=== PATIENT | female | born 1970 | race Hispanic/Latino ===

== ENCOUNTER 2018-01-05 13:47 | Emergency (ER) | payer SELFPAY ==
[~2018-01-05] VITALS: Ht 157.5 cm; Wt 63.5 kg
[2018-01-05] MEDS ORDERED: HYDROCODONE/APAP 10MG-325MG TAB PO ONE (14:45)
[2018-01-05] MEDS ORDERED: ORPHENADRINE CITRATE 30 MG/ML VIAL IM ONE (14:45)
--- NOTE | 2018-01-05 16:06 | Diagnostic Imaging Report ---
RIGHT SHOULDER X-RAY - 2 VIEWS HISTORY: \S\neck pain with radiculopathy \[id number] \S\1450 \S\Y COMPARISON: None available. FINDINGS: Bones: No acute displaced fracture. Well corticated calcification/bone fragment adjacent to the right humeral head suggestive of rotator cuff tendinosis. Osseous alignment is within normal limits. Joints: The joint spaces are well-maintained. Soft tissues: The soft tissues appear unremarkable. IMPRESSION: No acute radiographic abnormality. Likely rotator cuff tendinosis. Signed by: Dr. My Avitia M.D. on 01/05/2018 4:03 PM
--- NOTE | 2018-01-05 16:07 | Diagnostic Imaging Report ---
Cervical Spine, 5 views HISTORY: Pain. Clavicular pathology COMPARISON: None. FINDINGS: Limited sensitivity for detection of subtle fractures and ligamentous abnormalities. On the lateral view, the cervical spine is visualized from the skull base to . The alignment is normal. No acute displaced fracture involving the visualized cervical spine. Disc Spaces and Uncovertebral Joints: Mild degenerative changes at C4-C5 and C5-C6. 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 No foraminal narrowing. IMPRESSION: Mild degenerative changes from C4 to C6. Signed by: Dr. My Avitia M.D. on 01/05/2018 4:04 PM
[2018-01-05] MEDS: KETOROLAC TROMETHAMINE 60 MG/2 ML VIAL IM ONE ×2 (17:22→17:25)
== END 2018-01-05 19:45 | disposition home or self-care (01) ==
LOC: ER 13:47
DX: M54.2 Cervicalgia (principal); M54.12 Radiculopathy, cervical region; M25.511 Pain in right shoulder; S16.1XXA Strain of muscle, fascia and tendon at neck level, initial encounter; S46.811A Strain of other muscles, fascia and tendons at shoulder and upper arm level, right arm, initial encounter; E07.9 Disorder of thyroid, unspecified
CPT/HCPCS: 72050; 73030; 99284; J1885; J2360

== ENCOUNTER 2019-08-10 15:36 | Emergency (ER) | payer SELFPAY ==
[~2019-08-10] VITALS: Ht 157.5 cm; Wt 63.5 kg
--- OUTSIDE RECORDS SUMMARY | 2019-08-10 15:39 | XMS REPORT ---
[facility] Address Unknown Phone Unavailable Care Team Providers Care Crowd Controller Name Role Phone Derrick LAZO Unavailable Unavailable Problems This patient has no known problems. Allergies, Adverse Reactions, Alerts This patient has no known allergies or adverse reactions. Medications This patient has no known medications. Results Test Description Test Time Test Comments Text Results Atomic Results Result Comments CERVICAL SPINE 4 OR 5 VIEWS 2018-01-05 16:03:00 [facility] [address] [place] [address] Patient Name: PARMJIT ELLIOTT MR #: [id number] : 1970 Age/Sex: 47/F Req #: [id number] Adm Physician: Ordered by: RICHMOND SHEEHAN APPEALS COORDINATOR Report #: [id number] Location: ER Room/Bed: Procedure: [id number] DX/CERVICAL SPINE 4 OR 5 VIEWS Exam Date: 01/05/18 Exam Time: 1450 REPORT STATUS: Signed Cervical Spine, 5 views HISTORY: Pain. Clavicular pathology COMPARISON: None. FINDINGS: Limited sensitivity for detection of subtle fractures and ligamentous abnormalities. On the lateral view, the cervical spine is visualized from the skull base to . The alignment is normal. No acute displaced fracture involving the visualized cervical spine. Disc Spaces and Uncovertebral Joints: Mild degenerative changes at C4-C5 and C5-C6. 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 No foraminal narrowing. IMPRESSION: Mild degenerative changes from C4 to C6. Signed by: Dr. Trupti Quinteros M.D. on 01/05/2018 4:04 PM Dictated By: TRUPTI QUINTEROS MD 03 Transcribed By: JAYY on 01/05/18 160 COPY TO: RICHMOND SHEEHAN NP SHOULDER RIGHT COMPLETE 2018-01-05 16:02:00 [place] [address] Patient Name: PARMJIT ELLIOTT MR #: [id number] : 1970 Age/Sex: 47/F Req #: [id number] Adm Physician: Ordered by: RICHMOND SHEEHAN NP Report #: [id number] Location: ER Room/Bed: Procedure: [id number] DX/SHOULDER RIGHT COMPLETE Exam Date: 01/05/18 Exam Time: 1450 REPORT STATUS: Signed RIGHT SHOULDER X-RAY - 2 VIEWS HISTORY: COMPARISON: None available. FINDINGS: Bones: No acute displaced fracture. Well corticated calcification/bone fragment adjacent to the right humeral head suggestive of rotator cuff tendinosis. Osseous alignment is within normal limits. Joints: The joint spaces are well- maintained. Soft tissues: The soft tissues appear unremarkable. IMPRESSION: No acute radiographic abnormality. Likely rotator cuff tendinosis. Signed by: Dr. Trupti Quinteros M.D. on 01/05/2018 4:03 PM Dictated By: TRUPTI QUINTEROS MD 160 Transcribed By: JAYY on 01/05/18 [id number] COPY TO: RICHMOND SHEEHAN NP
[2019-08-10] MEDS ORDERED: TETANUS/DIPHTHERIA TOX ADULT 0.5 ML SYR IM ONE (16:00)
[2019-08-10 17:35] VITALS: BP 139/82
--- NOTE | 2019-08-10 18:34 | Diagnostic Imaging Report ---
LEFT HAND X-RAY - 3 VIEWS HISTORY: ^r/o f/b fx post pw ^[id number] ^[id number] COMPARISON: None available. FINDINGS: Bones: No acute displaced fracture. A 3 mm well-corticated calcification/loose body adjacent to the ulnar styloid may reflect prior trauma or tendon calcification. Osseous alignment is within normal limits. Joints: The joint spaces are well-maintained. Soft tissues: The soft tissues appear unremarkable. IMPRESSION: No acute bony abnormality. Small calcification/loose body adjacent to the ulnar styloid appears to be chronic rather than acute. Correlate with region of pain. Signed by: Dr. My Avitia M.D. on 08/10/2019 6:31 PM
== END 2019-08-10 18:37 | disposition home or self-care (01) ==
LOC: ER 15:36
DX: S61.432A Puncture wound without foreign body of left hand, initial encounter (principal); W27.0XXA Contact with workbench tool, initial encounter; Y92.008 Other place in unspecified non-institutional (private) residence as the place of occurrence of the external cause; E03.9 Hypothyroidism, unspecified
CPT/HCPCS: 90471; 90714; 99283

== ENCOUNTER 2020-12-19 07:42 | Emergency (ER) | payer OTHER ==
[~2020-12-19] VITALS: Ht 167.6 cm; Wt 81.6 kg
[2020-12-19 09:26] LABS: BASOPHILS # (AUTO) 0.1 (0.0-0.1); BASOPHILS % 0.5 % (0.0-1.0); EOSINOPHILS # (AUTO) 0.1 (0.0-0.4); EOSINOPHILS % 1.1 % (0.0-6.0); HEMATOCRIT 38.5 % (34.2-44.1); HEMOGLOBIN 12.4 g/dL (12.0-16.0); LYMPHOCYTES # (AUTO) 1.4 (1.0-3.2); LYMPHOCYTES % 14.3 % (18.0-39.1); MEAN CORPUSCULAR HEMOGLOBIN 26.8 pg (28-32); MEAN CORPUSCULAR HGB CONC 32.2 g/dL (31-35); MEAN CORPUSCULAR VOLUME 83.2 fL (81-99); MONOCYTES # (AUTO) 0.7 (0.2-0.8); MONOCYTES % 7.1 % (4.4-11.3); NEUTROPHILS # (AUTO) 7.5 (2.1-6.9); NEUTROPHILS % 76.3 % (38.7-80.0); PLATELET COUNT 225 x10e3/uL (140-360); RED BLOOD COUNT 4.63 x10e6/uL (3.6-5.1); RED CELL DISTRIBUTION WIDTH 15.6 % (11.7-14.4)
[2020-12-19 09:33] LABS: CLARITY,URINE CLEAR (CLEAR); COLOR,URINE YELLOW (YELLOW); KETONES,URINE NEGATIVE (NEGATIVE); LEUKOCYTE ESTERASE ,URINE NEGATIVE (NEGATIVE); NITRITE,URINE NEGATIVE (NEGATIVE); PROTEIN,URINE DIPSTICK NEGATIVE (NEGATIVE); URINE UROBILINOGEN 0.2 mg/dL (0.2 - 1)
[2020-12-19 09:36] LABS: ANION GAP 15.9 mmol/L (8-16); CALCIUM 9.1 mg/dL (8.4-10.2); CREATININE, SERUM 0.69 mg/dL (0.57-1.11); POTASSIUM 3.9 mmol/L (3.5-5.1)
[2020-12-19 09:42] LABS: BACTERIA,URINE RARE /HPF; EPITHELIAL CELLS,URINE FEW /LPF; WBC,URINE (MAN) 0-5 /HPF (0-5)
== END 2020-12-19 10:32 | disposition home or self-care (01) ==
LOC: ER 08:39
DX: R20.2 Paresthesia of skin (principal); E03.9 Hypothyroidism, unspecified
CPT/HCPCS: 36415; 80048; 81001; 84484; 85025; 93005; 99284